=== PATIENT | female | born 1965 | race Caucasian/White ===

== ENCOUNTER 2018-07-28 19:59 | Inpatient (IN) | payer SELFPAY ==
[2018-07-28] MEDS ORDERED: KEFLEX500 MG (20:06)
[2018-07-28 20:31] LABS: BASOPHILS 0.2 % (0-2); EOSINOPHILS 1.2 % (0-7); HEMATOCRIT 42.6 % (36.0-48.0); HEMOGLOBIN 14.3 g/dL (12-16); IMMATURE GRANULOCYTES 0.3 % (0-5); LYMPHOCYTES 9.2 % (15-50); MCH 30.8 pg (26.0-34.0); MCHC 33.6 g/dL (31.0-37.0); MCV 91.8 fL (80.0-100.0); MEAN PLATELET VOLUME 9.6 fL (7.4-10.4); MONOCYTES 6.5 % (2-11); NEUTROPHILS 82.6 % (40-80); PLATELET COUNT 163 10x3/uL (130-400); RBC 4.64 10x6/uL (4.00-5.40); RDW 13.5 % (11.5-14.5); WBC 16.1 10x3/uL (4.8-10.8)
--- NOTE | 2018-07-28 20:43 | NUR ---
SPOKE WITH AMISH LONG APRN, HE STATES THAT HE DOES NOT NEED EKG.
[2018-07-28 20:48] LABS: ALBUMIN 2.9 g/dL (3.4-5.0); ALKALINE PHOSPHATASE 79 U/L (46-116); ALT (SGPT) 17 U/L (10-68); AMYLASE - SERUM 20 U/L (25-115); BILIRUBIN - TOTAL 0.79 mg/dL (0.2-1.3); CALC OSMOLALITY 275 mosm/kg (275-300); CALCIUM 8.4 mg/dL (8.5-10.1); CARBON DIOXIDE 24.3 mmol/L (21.0-32.0); CHLORIDE - SERUM 102 mmol/L (98-107); CREATININE - SERUM 1.4 mg/dL (0.6-1.3); GLUCOSE 171 mg/dL (74-106); LIPASE 73 U/L (73-393); PROTEIN - SERUM 7.1 g/dL (6.4-8.2); SODIUM 136 mmol/L (136-145); UREA NITROGEN 13 mg/dL (7-18); eGFR NON AFRICAN AMERICAN 42 mL/min (90-120)
[2018-07-28 20:50] LABS: TROPONIN-I < 0.017 ng/mL (0.000-0.060)
[2018-07-28 21:02] LABS: APPEARANCE CLEAR (CLEAR); BILIRUBIN NEGATIVE (NEGATIVE); COLOR YELLOW (YELLOW); GLUCOSE 100 mg/dL (NEGATIVE); KETONE NEGATIVE (NEGATIVE); NITRITE NEGATIVE (NEGATIVE); PROTEIN 2+ mg/dL (NEGATIVE); SPECIFIC GRAVITY 1.015 (1.005-1.020); UROBILINOGEN NORMAL (NORMAL)
[2018-07-28 21:03] LABS: EPITHELIAL CELLS 0-5 /hpf (0-5)
[2018-07-28] MEDS ORDERED: TORADOL10 MG PO (21:54)
[2018-07-28] MEDS ORDERED: ZOFRAN ODT4 MG/UDTAB PO (21:54)
--- NOTE | 2018-07-28 21:55 | NUR ---
ERP INFORMED OF LACTIC ACID OF 3.2.
[2018-07-28] MEDS ORDERED: MACROBID100 MG PO (21:56)
--- NOTE | 2018-07-28 23:40 | NUR ---
ADMIT TO ROOM 2109 FROM ER. ALERT/ORIENTED. ADMISSION HISTORY AND MEDS REVIEWED. IVF INFUSING. ABT UP AND INFUSING. PT TO SLEEP EASILY AFTER BEING ASSESSED. PLAN OF CARE INITIATED. MONITOR. CALL LIGHT IN REACH.
[2018-07-29 00:13] VITALS: BP 105/50; BMI 42.2
[2018-07-29 00:30] VITALS: BP 105/50
[2018-07-29 02:28] LABS: BASOPHILS 0.2 % (0-2); EOSINOPHILS 2.4 % (0-7); HEMATOCRIT 38.2 % (36.0-48.0); HEMOGLOBIN 12.7 g/dL (12-16); IMMATURE GRANULOCYTES 0.4 % (0-5); LYMPHOCYTES 16.4 % (15-50); MCH 30.4 pg (26.0-34.0); MCHC 33.2 g/dL (31.0-37.0); MCV 91.4 fL (80.0-100.0); MEAN PLATELET VOLUME 9.6 fL (7.4-10.4); NEUTROPHILS 71.6 % (40-80); PLATELET COUNT 146 10x3/uL (130-400); RBC 4.18 10x6/uL (4.00-5.40); RDW 13.3 % (11.5-14.5); WBC 13.1 10x3/uL (4.8-10.8)
[2018-07-29 02:42] LABS: ALBUMIN 2.3 g/dL (3.4-5.0); ANION GAP 12.7 mmol/L (8-16); BILIRUBIN - TOTAL 0.53 mg/dL (0.2-1.3); CALCIUM 7.6 mg/dL (8.5-10.1); CARBON DIOXIDE 23.3 mmol/L (21.0-32.0); CREATININE - SERUM 1.2 mg/dL (0.6-1.3)
[2018-07-29 05:30] VITALS: BP 113/48
--- NOTE | 2018-07-29 07:00 | NUR ---
RECEIVED REPORT. ASSUMED CARE OF PATIENT. PATIENT RESTING WITH EYES CLOSED, SNORING, ON LEFT LATERAL SIDE. RESP EVEN AND UNLABORED. NO DISTRESS. CALL LIGHT WITHIN REACH. WHITE BOARD UPDATED.
[2018-07-29 08:14] VITALS: BP 134/52
--- NOTE | 2018-07-29 09:34 | MORECARE ---
CASE MANAGEMENT DISCHARGE SUMMARY PATIENT: CAMI GALLOWAY UNIT: [id number] ADM DATE: 07/28/18 AGE: 52 : 65 SEX: F ROOM/BED: D.8904 AUTHOR: KASSANDRA,DOC PHYSICIAN: REFERRING PHYSICIAN: MIGUEL BOND MD DATE OF SERVICE: 07/29/18 Discharge Plan Patient Name: CAMI GALLOWAY Facility: [facility]:[place] : 1965 Planned Disposition: Home Anticipated Discharge Date: Discharge Date: Expected LOS: Initial Reviewer: LAURA Initial Review Date: 07/29/2018 Generated: 07/29/18 10:33 am Comments DCP- Discharge Planning Updated by [email or web address]: Kathrine Bermudez on 07/29/18 8:[address] Patient Name: CAMI GALLOWAY Admission Status: ER Accout number: [id number] Admission Date: 07-28-2018 : 1965 Admission Diagnosis: Attending: MIGUEL BOND Current LOS: 1 Anticipated DC Date: Planned Disposition: Home Primary Insurance: UNINSURED DISCOUNT PLAN Discharge Planning Comments: CM met with patient to complete initial dc planning assessment. CM educated patient on the CM role and verbal consent given by patient to complete assessment. CM verified patient's address, phone number, and emergency contact phone numbers. Patient lives at home alone and reports she is independent in her care. At discharge patient plans to return home alone and feels this is a safe discharge. CM discussed availability of home health, rehab services, and medical equipment. Patient denied known discharge needs at this time. Patient reports her friend Enrique will transport her home at time of discharge. CM will continue to follow and will assist as needed with dc plans/needs. Chief Relay Tester: Kathrine Bermudez DCPIA - Discharge Planning Initial Assessment Updated by [email or web address]: Kathrine Bermudez on 07/29/18 9:31 am * Is the patient Alert and Oriented? Yes * How many steps to enter\exit or inside your home? * PCP none * Pharmacy none * Preadmission Environment Home Alone * ADLs Independent * Verbal permission to speak to the caregivers and representatives has been obtained from the patient. N/A * Additional services required to return to the preadmission environment? No * Can the patient safely return to the preadmission environment? Yes * Has this patient been hospitalized within the prior 30 days at any hospital? No Patient Name: CAMI GALLOWAY Page [id number] at 0934 All edits/amendments must be made on the electronic document DICTATION DATE: 07/29/18932 GOLF COURSE MANAGER: PRINCE 07/29/18932 RPT#: [id number] DC DATE: STATUS: ADM IN [facility] [address] [place] [address] END OF REPORT
--- NOTE | 2018-07-29 11:46 | NUR ---
ELECTRLYTE PROTOCOL INITIATED FOR HYPOKALEMIA. NO DISTRESS.
[2018-07-29 13:06] VITALS: BP 118/61
--- NOTE | 2018-07-29 13:17 | NUR ---
SCD'S REFUSED. PATIENT AMBULATORY, OOB OFTEN. SCD'S RESTRICTING PATIENT.
--- NOTE | 2018-07-29 18:06 | NUR ---
NO DISTRESS. SITTING AT BEDSIDE. CHEERFUL. IV FLUIDS INFUSING ORDERED. NO DISTRESS.
[2018-07-29 20:00] VITALS: BP 132/90
--- NOTE | 2018-07-29 20:09 | NUR ---
EVENING ROUNDS COMPLETED. REPORT RECEIVED. PT SITTING UP IN BED WITH EYES OPEN, RR EVEN AND UNLABORED. PT REQUESTED TO BE REMOVED FROM IV FLUIDS SO THAT SHE MAY AMBULATE THROUGH [facility]. INSTRUCTED PT NOT TO LEAVE FACILITY BUT THAT SHE MAY AMBULATE THROUGH [facility] OF FLOOR. PT STATES UNDERSTANDING. BED IN LOW POSITION. NO S/S OF DISTRESS NOTED. WILL CTM.
[2018-07-30 00:27] VITALS: BP 143/87
--- NOTE | 2018-07-30 00:34 | NUR ---
RIGHT AC PIV REMOVED AFTER PT COMPLAINTS OF PAIN AND REDNESS NOTED AT SITE. PAOLA FAM RN RESTARTED 22 GAUGE PIV IN LEFT HAND.
--- NOTE | 2018-07-30 04:00 | NUR ---
I have reviewed this patient and I concur with the Shift Assessment completed by the Licensed Practical Nurse today this shift.
--- NOTE | 2018-07-30 04:09 | NUR ---
ADMINISTERED ORDERED ACETAMINOPHEN 650 MG PO FOR PT COMPLAINTS OF HEADACHE. PT STATES PAIN OF A 6 ON A SCALE OF 0-10.
[2018-07-30 04:25] VITALS: BP 147/71
[2018-07-30 04:47] LABS: BASOPHILS 0.4 % (0-2); EOSINOPHILS 4.6 % (0-7); HEMATOCRIT 36.5 % (36.0-48.0); IMMATURE GRANULOCYTES 0.3 % (0-5); LYMPHOCYTES 23.4 % (15-50); MCHC 32.9 g/dL (31.0-37.0); MCV 91.3 fL (80.0-100.0); MEAN PLATELET VOLUME 9.6 fL (7.4-10.4); MONOCYTES 10.9 % (2-11); NEUTROPHILS 60.4 % (40-80); PLATELET COUNT 173 10x3/uL (130-400); RDW 13.2 % (11.5-14.5); WBC 11.2 10x3/uL (4.8-10.8)
[2018-07-30 04:51] LABS: ANION GAP 14.6 mmol/L (8-16); CALCIUM 7.7 mg/dL (8.5-10.1); CARBON DIOXIDE 21.6 mmol/L (21.0-32.0); CREATININE - SERUM 1.3 mg/dL (0.6-1.3); POTASSIUM - SERUM 3.2 mmol/L (3.5-5.1)
--- NOTE | 2018-07-30 05:20 | NUR ---
3.2 SERUM POTASSIUM TREATED ORDERED
[2018-07-30 07:40] VITALS: BP 154/56
--- NOTE | 2018-07-30 08:00 | NUR ---
PT RESTING IN BED, SHIFT ASSESSMENT PERFORMED. DENIES ANY NEEDS AT THIS TIME, WILL CONT TO FOLLOW POC.
[2018-07-30 11:45] VITALS: BP 175/76
--- NOTE | 2018-07-30 11:46 | NUR ---
PT SITTING ON SIDE OF BED, DENIES ANY NEEDS AT THIS TIME. WILL CONT TO FOLLOW POC
[2018-07-30 16:08] VITALS: BP 134/76
--- NOTE | 2018-07-30 17:38 | NUR ---
PT WALKING AROUND UNIT WITH IV POLE. DENIES ANY NEEDS AT THIS TIME, WILL CONT TO FOLLOW POC
--- NOTE | 2018-07-30 19:43 | NUR ---
EVENING ROUNDS COMPLETED. REPORT RECEIVED. PT SITTING UP ON SIDE OF BED WITH EYES OPEN, RR EVEN AND UNLABORED. BED IN LOW POSITION. NO S/S OF DISTRESS NOTED. INTRODUCED SELF TO PT. PT REQUESTS TO BE UNHOOKED FROM IV SO THAT SHE CAN TAKE A SHOWER, PROVIDED PT WITH TOWELS AND NEW GOWN. PT DENIES FURTHER NEEDS AT THIS TIME. WILL CTM.
[2018-07-30 20:00] VITALS: BP 147/79
[2018-07-31 04:00] VITALS: BP 147/75
--- NOTE | 2018-07-31 05:02 | NUR ---
PT SITTING UP IN BED WITH EYES OPEN, RR EVEN AND UNLABORED. BED IN LOW POSITION. NO S/S OF DISTRESS NOTED. LEFT HAND PIV INFUSING NORMAL SALINE ORDERED. CALL LIGHT IN REACH. WILL CTM.
[2018-07-31 05:18] LABS: BASOPHILS 0.4 % (0-2); EOSINOPHILS 7.6 % (0-7); HEMATOCRIT 38.8 % (36.0-48.0); HEMOGLOBIN 12.8 g/dL (12-16); IMMATURE GRANULOCYTES 0.4 % (0-5); LYMPHOCYTES 28.4 % (15-50); MCV 91.1 fL (80.0-100.0); MEAN PLATELET VOLUME 9.6 fL (7.4-10.4); MONOCYTES 9.1 % (2-11); NEUTROPHILS 54.1 % (40-80); PLATELET COUNT 197 10x3/uL (130-400); RBC 4.26 10x6/uL (4.00-5.40); RDW 13.1 % (11.5-14.5); WBC 9.9 10x3/uL (4.8-10.8)
[2018-07-31 05:31] LABS: ANION GAP 15.2 mmol/L (8-16); CALCIUM 8.3 mg/dL (8.5-10.1); CARBON DIOXIDE 22.1 mmol/L (21.0-32.0); CREATININE - SERUM 1.3 mg/dL (0.6-1.3); POTASSIUM - SERUM 3.3 mmol/L (3.5-5.1)
--- NOTE | 2018-07-31 05:58 | NUR ---
3.3 SERUM POTASSIUM TREATED ORDERED, REDRAW TIME SET FOR 1000
[2018-07-31 07:20] VITALS: BP 133/57
--- NOTE | 2018-07-31 08:00 | NUR ---
PT RESTING IN BED, SHIFT ASSESSMENT PERFORMED. DENIES ANY NEEDS AT THIS TIME. WILL CONT TO FOLLOW POC
[2018-07-31 10:41] VITALS: BP 100/78
--- NOTE | 2018-07-31 11:52 | NUR ---
PT RESTING IN BED, DENIES ANY NEEDS AT THIS TIME. WILL CONT TO FOLLOW POC
[2018-07-31] MEDS ORDERED: LEVAQUIN750 MG PO (15:55)
--- NOTE | 2018-07-31 17:29 | NUR ---
DISCHARGE INSTRUCTIONS REVIEWED WITH PT AND ALL QUESTIONS ANSWERED. PIV REMOVED WITH CATHETER TIP INTACT. ASSISTED PT TO FRONT OF HOSPITAL VIA WHEELCHAIR. PT DROVE HERSELF HOME
--- NOTE | 2018-08-01 07:30 | MORECARE ---
CASE MANAGEMENT DISCHARGE SUMMARY PATIENT: CAMI GALLOWAY UNIT: [id number] ADM DATE: 07/28/18 AGE: 52 : 65 SEX: F ROOM/BED: D.0013 AUTHOR: KASSANDRA,DOC PHYSICIAN: REFERRING PHYSICIAN: MIGUEL BOND MD DATE OF SERVICE: 08/01/18 Discharge Plan Patient Name: CAMI GALLOWAY Facility: [facility]:[place] : 1965 Planned Disposition: Home Anticipated Discharge Date: 07/31/18 Discharge Date: 07/31/2018 Expected LOS: 3 Initial Reviewer: LAURA Initial Review Date: 07/29/2018 Generated: 08/01/18 8:30 am DCP- Discharge Planning Updated by [email or web address]: Kathrine Bermudez on 07/29/18 8:[address] Patient Name: CAMI GALLOWAY Admission Status: ER Accout number: [id number] Admission Date: 07-28-2018 : 1965 Admission Diagnosis: Attending: MIGUEL BOND Current LOS: 1 Anticipated DC Date: Planned Disposition: Home Primary Insurance: UNINSURED DISCOUNT PLAN Discharge Planning Comments: CM met with patient to complete initial dc planning assessment. CM educated patient on the CM role and verbal consent given by patient to complete assessment. CM verified patient's address, phone number, and emergency contact phone numbers. Patient lives at home alone and reports she is independent in her care. At discharge patient plans to return home alone and feels this is a safe discharge. CM discussed availability of home health, rehab services, and medical equipment. Patient denied known discharge needs at this time. Patient reports her friend Enrique will transport her home at time of discharge. CM will continue to follow and will assist as needed with dc plans/needs. Meter Inspector: Kathrine Bermudez DCPIA - Discharge Planning Initial Assessment Updated by [email or web address]: Kathrine Bermudez on 07/29/18 9:31 am * Is the patient Alert and Oriented? Yes * How many steps to enter\exit or inside your home? * PCP none * Pharmacy none * Preadmission Environment Home Alone * ADLs Independent * Verbal permission to speak to the caregivers and representatives has been obtained from the patient. N/A * Additional services required to return to the preadmission environment? No * Can the patient safely return to the preadmission environment? Yes * Has this patient been hospitalized within the prior 30 days at any hospital? No Last DP export: 07/29/18 8:34 am Patient Name: CAMI GALLOWAY Page [phone] at 0730 All edits/amendments must be made on the electronic document DICTATION DATE: 08/01/18729 BUTCHER: PRINCE 08/01/18729 RPT#: [id number] DC DATE:07/31/18 STATUS: DIS IN [facility] [address] [place] [address] END OF REPORT
== END 2018-07-31 17:30 | disposition home or self-care (01) | DRG 872 ==
LOC: D.ER 19:59 → D.M2 22:25
PROVIDERS: Emergency Medicine; Family Medicine; ADMIT Family Medicine; ATTEND Family Medicine
DX: A41.9 Sepsis, unspecified organism (principal); N39.0 Urinary tract infection, site not specified; F17.213 Nicotine dependence, cigarettes, with withdrawal; B96.89 Other specified bacterial agents as the cause of diseases classified elsewhere; N20.0 Calculus of kidney; Z87.442 Personal history of urinary calculi; E87.6 Hypokalemia